=== PATIENT | male | born 1995 | race Hispanic/Latino ===

== ENCOUNTER 2018-04-13 23:11 | Emergency (ER) | payer SELFPAY ==
[2018-04-14] MEDS ORDERED: Ketorolac Tromethamine 60 MG/2 ML VIAL ONE (01:01)
== END 2018-04-14 01:49 | disposition home or self-care (01) ==
LOC: ERS 23:11
DX: M54.16 Radiculopathy, lumbar region (principal)
CPT/HCPCS: 96372; J1885

== ENCOUNTER 2018-08-05 18:26 | Emergency (ER) | payer SELFPAY ==
--- NOTE | 2018-08-05 20:09 | RAD ---
RADIOGRAPH RIGHT HAND THREE VIEWS: Date: 08-04-18 Time: 6:46 p.m. History: 22-year-old male status post blunt trauma to the right hand. FINDINGS: There is a transversely oriented, minimally comminuted fracture (with additional vertical component o f fracture in the proximal fragment), across the mid diaphysis of the fifth metacarpal, with dorsal a ngulation of fracture apex, volar angulation of anterior fragment by approximately 40% degrees. No di slocation. IMPRESSION: Acute, traumatic, Boxer's fracture of the fifth metacarpal shaft. POS: [facility]
== END 2018-08-05 20:38 | disposition home or self-care (01) ==
LOC: ERS 18:26
DX: S62.336A Displaced fracture of neck of fifth metacarpal bone, right hand, initial encounter for closed fracture (principal); W22.01XA Walked into wall, initial encounter
CPT/HCPCS: 26600

== ENCOUNTER 2019-06-18 08:09 | Emergency (ER) | payer SELFPAY ==
[2019-06-18] MEDS ORDERED: Acetaminophen 500 MG TAB ONE (08:37)
[2019-06-18] MEDS ORDERED: Lidocaine 1% w/Epinephrine 1:100K 20 ML VIAL ONE (08:38)
--- NOTE | 2019-06-18 08:46 | CT ---
CT BRAIN WITHOUT CONTRAST: HISTORY: Head injury, headache and numbness FINDINGS: No evidence of acute infarct, hemorrhage, midline shift or abnormal extra-axial fluid collections is seen. The ventricular size is appropriate and the basilar cisterns are patent. The bony calvarium is intact. The visualized paranasal sinuses and mastoid air cells are well aerated. IMPRESSION: No CT evidence of acute intracranial process.
--- NOTE | 2019-06-18 08:50 | CT ---
EXAM: CT face without contrast HISTORY: Facial trauma by a hammer COMPARISON: None TECHNIQUE: Multiple contiguous axial images were obtained and a CT of the face without contrast. Sagi ttal and coronal reformats were performed. FINDINGS: No facial fractures are identified. Mild left periorbital facial soft tissue swelling is s een. The globes and retrobulbar soft tissues are unremarkable. A small amount of fluid is seen in the left maxillary sinus. The other visualized paranasal sinuses a re well aerated without evidence of opacification. The mastoid air cells are well aerated. Visualized intracranial structures are unremarkable. IMPRESSION: No evidence of facial fracture
[2019-06-18] MEDS ORDERED: Ibuprofen 800 MG TAB ONE (10:20)
[2019-06-18] MEDS ORDERED: Ondansetron ODT 4 MG TAB ONE (10:20)
== END 2019-06-18 11:55 | disposition home or self-care (01) ==
LOC: ERS 08:09
DX: S01.112A Laceration without foreign body of left eyelid and periocular area, initial encounter (principal); W22.8XXA Striking against or struck by other objects, initial encounter
CPT/HCPCS: 12013; 70450; 70486; J2001; Q0162

== ENCOUNTER 2021-05-16 19:36 | Observation (INO) | payer SELFPAY ==
[~2021-05-16 19:36] MED LIST: Iopamidol-370 76% 500 ML 1 ML ONE
[2021-05-16 20:24] LABS: #Basophils 0.2 thou/uL (0.0-0.2); #Lymphocytes 0.9 thou/uL (1.20-3.40); #Monocytes 0.7 thou/uL (0.11-0.59); #Neutrophils 6.6 thou/uL (1.40-6.50); %Basophils 2.9 % (0.0-1.0); %Eosinophils 0.2 % (0.0-10.0); %Lymphocytes 10.7 % (21.0-51.0); %Monocytes 8.2 % (0.0-10.0); %Neutrophils 78.1 % (42.0-75.0); Hemoglobin 15.1 g/dL (14.0-18.0); Mean Corpuscular HGB CONC 33.5 g/dL (32.0-36.0); Mean Corpuscular Hemoglobin 28.9 pg (27.0-31.0); Mean Corpuscular Volume 86.3 fL (78.0-98.0); Mean Platelet Volume 9.9 fL (7.4-10.4); Platelet Count 135 thou/uL (130-400); RBC Distribution Width 11.4 % (11.5-14.5); Red Blood Cell (RBC) Count 5.23 mill/uL (4.70-6.10); White Blood Cell (WBC) Count 8.4 thou/uL (4.8-10.8)
[2021-05-16] MEDS ORDERED: Mag-Al 1200 mg/1200 mg/30 ML UDCUP ONE (20:30)
[2021-05-16] MEDS ORDERED: Ondansetron PF 4 MG/2 ML Vial ONE (20:30)
[2021-05-16] MEDS ORDERED: Lidocaine Viscous Sol 2% 15 ml UD Cup ONE (20:30)
[2021-05-16 20:41] LABS: ALT (SGPT) 69 U/L (8-55); AST (SGOT) 53 U/L (5-34); Albumin 3.6 g/dL (3.5-5.0); Alkaline Phosphatase 111 U/L (40-110); Anion Gap 15 mmol/L (10-20); BUN (Urea Nitrogen) 12 mg/dL (8.9-20.6); Bilirubin, Total 0.6 mg/dL (0.2-1.2); Calc. Creatinine Clearance 0 mL/min (70-130); Calcium 8.4 mg/dL (7.8-10.44); Carbon Dioxide 17 mmol/L (22-29); Chloride 101 mmol/L (98-107); Globulin 3.5 g/dL (2.4-3.5); Glucose 303 mg/dL (70-105); Lipase 16 U/L (8-78); Protein, Total 7.1 g/dL (6.0-8.3); Sodium 129 mmol/L (136-145)
[2021-05-17 01:05] VITALS: BMI 29.7
[2021-05-17] MEDS ORDERED: Dextrose 50% Abboject 50 ML SYRINGE SLOW IVP PRN (08:52)
[2021-05-17] MEDS ORDERED: HumaLOG 300 UNITS/3 ML VIAL SC PRN ×2 (08:52)
[2021-05-17] MEDS ORDERED: Loperamide HCl 2 MG CAP PO PRN (08:52)
[2021-05-17] MEDS ORDERED: Dextrose 5% in Water 1,000 ML IV PRN (08:52)
[2021-05-17] MEDS ORDERED: Sodium Chloride 0.9% 1,000 ML IV SCH (09:00)
[2021-05-17] MEDS ORDERED: Enoxaparin Sodium 40 MG/0.4 ML SYRINGE SC SCH (09:00)
[2021-05-17] MEDS ORDERED: Ondansetron PF 4 MG/2 ML Vial IVP PRN (09:15)
[2021-05-17 09:28] LABS: Hemoglobin A1c 12.4 % (4.0-6.0)
[2021-05-17 09:41] LABS: Cholesterol 168 mg/dl (< 200 Desired); HDL Cholesterol 28 mg/dL (>60 Neg Risk); Triglycerides 494 mg/dL (Less than 150)
[2021-05-17] MEDS ORDERED: Enoxaparin Sodium 40 MG/0.4 ML SYRINGE ONE (10:12)
[2021-05-17 11:50] LABS: Bacteria/HPF None Seen HPF (None Seen); Bilirubin Negative (Negative); Blood, Urine Negative (Negative); Clarity Clear (Clear); Glucose, Urine (Dipstick) Greater than 1000 mg/dL (Negative); Ketone, Urine 150 mg/dL (Negative); Leukocyte Negative Leu/uL (Negative); Nitrite Negative (Negative); Protein, Urine (Dipstick) 10 mg/dL (Neg-Trace); RBC/HPF 0-3 HPF (0-3); Specific Gravity, Urine 1.046 (1.002-1.036); Squamous Epithelial 0-3 HPF (0-3); Urobilinogen Normal mg/dL (Less than 2); WBC/HPF 0-3 HPF (0-3); pH, Urine 5.5 (5.0-9.0)
[2021-05-17 11:59] LABS: Urine Culture Reflex No No
[2021-05-17] MEDS ORDERED: Famotidine/PF 20 mg/2ml Vial SLOW IVP SCH (21:00)
[2021-05-18] MEDS ORDERED: Enoxaparin Sodium 40 MG/0.4 ML SYRINGE SC SCH (09:00)
== END 2021-05-17 12:09 | disposition short-term general hospital (02) ==
LOC: ERS 19:36 → ERHOLD 23:25 → INTOOBSV 23:34 → ERHOLD 23:34
PROVIDERS: ADMIT Internal Medicine; ATTEND Internal Medicine
DX: K52.9 Noninfective gastroenteritis and colitis, unspecified (principal); R73.9 Hyperglycemia, unspecified; K76.0 Fatty (change of) liver, not elsewhere classified
CPT/HCPCS: 36415; 74177; 76705; 80053; 80061; 81001; 82010; 83036; 83605; 83630; 83690; 85025; 87045; 87046; 87081; 87324; 87338; 87427; 87449; 96372; 96374; J0500; J1650; J2405; Q9967

== ENCOUNTER 2023-10-21 22:33 | Emergency (ER) | payer SELFPAY ==
[2023-10-21] MEDS ORDERED: Ketorolac Tromethamine 30 MG/ML VIAL ONE (23:35)
== END 2023-10-21 23:58 | disposition home or self-care (01) ==
LOC: ERS 22:33
DX: M79.642 Pain in left hand (principal); E11.9 Type 2 diabetes mellitus without complications
CPT/HCPCS: 96372; J1885

== ENCOUNTER 2023-12-10 13:07 | Emergency (ER) | payer SELFPAY ==
[2023-12-10] MEDS ORDERED: Lidocaine 1% PF 5 ML VIAL ONE (13:40)
== END 2023-12-10 14:35 | disposition home or self-care (01) ==
LOC: ERS 13:07
DX: S61.511A Laceration without foreign body of right wrist, initial encounter (principal); E11.9 Type 2 diabetes mellitus without complications; W18.49XA Other slipping, tripping and stumbling without falling, initial encounter; Z79.84 Long term (current) use of oral hypoglycemic drugs
CPT/HCPCS: 12002; 99282

== ENCOUNTER 2023-12-23 14:13 | Emergency (ER) | payer SELFPAY | END 2023-12-23 14:58 | disposition home or self-care (01) | LOC: ERS 14:13 | DX: S61.511D Laceration without foreign body of right wrist, subsequent encounter (principal); E11.9 Type 2 diabetes mellitus without complications; X58.XXXD Exposure to other specified factors, subsequent encounter; Z79.899 Other long term (current) drug therapy ==

== ENCOUNTER 2025-10-10 17:45 | Emergency (ER) | payer SELFPAY ==
[2025-10-10] MEDS ORDERED: HYDROcodone/Acetaminophen 5/325 mg Tablet ONE ×3 (19:05→19:07)
== END 2025-10-10 19:12 | disposition home or self-care (01) ==
LOC: ERS 17:45
DX: S82.54XA Nondisplaced fracture of medial malleolus of right tibia, initial encounter for closed fracture (principal); E11.9 Type 2 diabetes mellitus without complications; Z79.84 Long term (current) use of oral hypoglycemic drugs; Z75.8 Other problems related to medical facilities and other health care; W11.XXXA Fall on and from ladder, initial encounter; Y99.0 Civilian activity done for income or pay
CPT/HCPCS: 29515